=== PATIENT | female | born 1955 | race Two or more races ===

== ENCOUNTER 2021-09-09 19:44 | Emergency (ER) | payer SELFPAY ==
[~2021-09-09] VITALS: Ht 162.6 cm; Wt 136.1 kg
--- NOTE | 2021-09-09 19:59 | NUR ---
BIB EMS S/P WITNESSED SIZURE AT THE MALL. PT UNSURE IF SHE HAS HX OF SEIZURES. PT ALERT AND ORIENTED NO NO FECAL/URINE INCONTINENCE, ORAL TRAUMA, OR COMPLAINTS OF PAIN. BLOOD SUGAR NORMAL IN FIELD. PLACED ON MONITOR AND SEIZURE PRECAUTIONS ALL VSS. MD WAS AT BEDSIDE FOR EVAL.
[2021-09-09 20:56] LABS: BASOPHILS # (AUTO) 0.1 K/uL (0.0-0.2); BASOPHILS % (AUTO) 0.4 % (0.0-2.0); EOSINOPHILS % (AUTO) 0.9 % (0.0-6.0); HEMATOCRIT 39 % (33-45); HEMOGLOBIN 12.6 g/dL (11.5-14.8); LYMPHOCYTES # (AUTO) 1.5 K/uL (0.8-4.8); LYMPHOCYTES % (AUTO) 9.5 % (20.0-44.0); MEAN CORPUSCULAR HGB CONC 32 g/dl (31.0-36.0); MEAN CORPUSCULAR VOLUME 90 fL (82-100); MONOCYTES # (AUTO) 0.8 K/uL (0.1-1.30); MONOCYTES % (AUTO) 5.2 % (2.0-12.0); NEUTROPHILS # (AUTO) 12.8 K/uL (1.8-8.9); PLATELET COUNT (AUTO) 408 K/uL (150-450); RED BLOOD CELL COUNT(AUTO) 4.37 MIL/uL (4.0-5.2); WHITE BLOOD COUNT (AUTO) 15.3 K/uL (4.3-11.0)
--- NOTE | 2021-09-09 21:04 | NUR ---
TAKEN TO RADIOLOGY
--- NOTE | 2021-09-09 21:17 | NUR ---
PT RETURNED FROM CT
[2021-09-09 21:38] LABS: ALBUMIN 3.6 g/dL (3.4-5.0); BILIRUBIN,DIRECT 0.1 mg/dL (0.0-0.2); BILIRUBIN,TOTAL 0.3 mg/dL (0.2-1.0); CALCIUM, SERUM 10.1 mg/dL (8.5-10.1); CREATININE 1.3 mg/dL (0.6-1.3); POTASSIUM 4.6 mmol/L (3.5-5.1); TOTAL PROTEIN, SERUM 8.6 g/dL (6.4-8.2)
[2021-09-09] MEDS ORDERED: IV NS 0.9% 1,000 ML BAG IV ONE (22:00)
--- NOTE | 2021-09-09 22:31 | NUR ---
CALLED [facility] TO HAVE IMAGES READ. PER TERRIE, IMAGES READ A FEW MINUTES AGO
--- NOTE | 2021-09-09 22:55 | NUR ---
PER MD ALMODOVAR CANCELLED
[2021-09-10 00:12] LABS: BILIRUBIN,URINE Negative (NEGATIVE); COLOR,URINE YELLOW (YELLOW); LEUKOCYTE ESTERASE ,URINE Negative (NEGATIVE); NITRITE, URINE Negative (NEGATIVE); PH,URINE 5.5 (5.0-8.0); PROTEIN,URINE Negative (NEGATIVE); UGLUCOSE Negative (NEGATIVE); UROBILINOGEN,URINE 0.2 EU/dL (0.2)
[2021-09-10 00:18] LABS: BACTERIA,URINE Rare /HPF (None Seen); SQUAMOUS EPITHELIAL CELL,UR Few /HPF (None Seen); WBC,URINE NONE SEEN /HPF (0-3)
--- NOTE | 2021-09-10 00:23 | NUR ---
ROOM ASSIGNMENT: [id number] MS
--- NOTE | 2021-09-10 00:38 | NUR ---
Patient discharged to home in stable condition. Written and verbal after care instructions given. Patient verbalizes understanding of instruction. IV line discontinued and pt assisted to car with wheelchair.
[2021-09-10 00:40] VITALS: BP 135/84
== END 2021-09-10 00:40 | disposition home or self-care (01) ==
LOC: ER 19:47
DX: R25.9 Unspecified abnormal involuntary movements (principal); R00.0 Tachycardia, unspecified; D72.829 Elevated white blood cell count, unspecified; E11.9 Type 2 diabetes mellitus without complications; I10 Essential (primary) hypertension
CPT/HCPCS: 36415; 70450; 71045; 80048; 80076; 81001; 85025; 96360; 99285; J7030